=== PATIENT | female | born 1975 | race African-American/Black ===

== ENCOUNTER 2023-03-07 07:56 | Emergency (ER) | payer BC, OTHER ==
[2023-03-07 08:15] VITALS: BMI 30.9
[2023-03-07] MEDS ORDERED: morphine CARPU-JECT 4 MG/1 ML DISP.SYRIN IVPUSH ONE (08:25)
[2023-03-07] MEDS ORDERED: ONDANSETRON 4 MG/2 ML VIAL IVPUSH ONE (08:25)
[2023-03-07] MEDS ORDERED: LACTATED RINGERS SOLUTION 1000 ML INFUS.BAG IV ONE (08:25)
[2023-03-07 08:47] LABS: BASO % 0.9 % (0-2.0); EOS % 0.1 % (0-4.5); HEMATOCRIT 38.5 % (32.4-45.2); HEMOGLOBIN 12.9 GM/dL (10.7-15.3); LYMPH % 9.6 % (8-40); MCHC 33.4 g/dl (32.0-36.0); MEAN CELL VOLUME 77.9 fl (80-96); MEAN PLT VOLUME 8.6 fl (7.5-11.1); MONO % 4.8 % (3.8-10.2); NEUT % 84.6 % (42.8-82.8); PLATELET COUNT 415 10^3/uL (134-434); RBC 4.94 M/mm3 (3.60-5.2); RDW 13.6 % (11.6-15.6); WHITE BLOOD COUNT 8.8 K/mm3 (4.0-10.0)
[2023-03-07] MEDS ORDERED: morphine SULFATE 4 MG/ML VIAL ONE (08:50)
[2023-03-07] MEDS ORDERED: ONDANSETRON 4 MG/2 ML VIAL ONE (08:51)
[2023-03-07 08:54] LABS: EPI CELLS 2 /uL (0-25.1); HYALINE CASTS 0 /uL (0-3.1); PH,URINE 7.5 (5.0-8.0); URINE APPEARANCE CLEAR; URINE BACTERIA 12 /uL (0-1359); URINE BILIRUBIN NEGATIVE (NEGATIVE); URINE COLOR YELLOW; URINE GLUCOSE (UA) NEGATIVE (NEGATIVE); URINE KETONE NEGATIVE (NEGATIVE); URINE LEUK ESTERASE NEGATIVE (NEGATIVE); URINE NITRITE NEGATIVE (NEGATIVE); URINE PROTEIN NEGATIVE (NEGATIVE); URINE RBC 18 /uL (0-23.9); URINE UROBILINOGEN 0.2 mg/dL (0.2-1.0); URINE WBC 1 /uL (0-25.8)
[2023-03-07 08:56] LABS: CHLORIDE 106 mmol/L (98-107); SODIUM 138 mmol/L (136-145)
[2023-03-07 08:59] LABS: ALBUMIN 4.4 g/dl (3.4-5.0); ANION GAP 9 MMOL/L (8-16); BLOOD UREA NITROGEN 6.6 mg/dL (7-18); CO2 24 mmol/L (21-32); GLUCOSE,RANDOM 117 mg/dL (74-106); LIPASE 88 U/L (73-393)
[2023-03-07 09:02] LABS: CREATININE 0.8 mg/dL (0.55-1.3); SGOT/AST 19 U/L (15-37)
[2023-03-07 09:03] LABS: BILIRUBIN,TOTAL 0.7 mg/dL (0.2-1)
[2023-03-07 09:04] LABS: ALK PHOS 55 U/L (45-117); TOT PROT 8.4 g/dl (6.4-8.2)
[2023-03-07 09:11] LABS: SGPT/ALT 42 U/L (13-61)
[2023-03-07] MEDS ORDERED: KETOROLAC TROMETHAMINE 15 MG/ML VIAL IVPUSH ONE (09:27)
[2023-03-07] MEDS ORDERED: KETOROLAC TROMETHAMINE 15 MG/ML VIAL ONE (10:10)
[2023-03-07] MEDS ORDERED: HYDROmorphone HCl 2 MG/ML VIAL IVPUSH ONE (10:54)
[2023-03-07] MEDS ORDERED: HYDROmorphone HCl 2 MG/ML VIAL ONE (10:57)
[2023-03-07] MEDS ORDERED: LIDOCAINE 5% TOPICAL PATCH TP ONE (11:26)
[2023-03-07] MEDS ORDERED: LIDOCAINE 5% TOPICAL PATCH ONE (11:29)
[2023-03-07] MEDS ORDERED: diazePAM 5 MG TABLET PO ONE (13:17)
[2023-03-07] MEDS ORDERED: diazePAM 5 MG TABLET ONE (13:29)
[2023-03-07 18:14] VITALS: BP 124/78; PULSE 85; RESP 20; TEMP 98.6
[2023-03-07] MEDS ORDERED: LIDOCAINE PATCH REMOVAL MC ONE (22:00)
== END 2023-03-07 17:17 | disposition home or self-care (01) ==
LOC: JER 07:56
PROC: 3E033GC Introduction of Other Therapeutic Substance into Peripheral Vein, Percutaneous Approach (ICD-10-PCS; principal; 2023-03-07)
PROC: 3E0333Z Introduction of Anti-inflammatory into Peripheral Vein, Percutaneous Approach (ICD-10-PCS; 2023-03-07)
PROC: 3E033GC Introduction of Other Therapeutic Substance into Peripheral Vein, Percutaneous Approach (ICD-10-PCS; 2023-03-07)
PROC: 3E033GC Introduction of Other Therapeutic Substance into Peripheral Vein, Percutaneous Approach (ICD-10-PCS; 2023-03-07)
DX: R10.9 Unspecified abdominal pain (principal); D25.9 Leiomyoma of uterus, unspecified; Z20.822 Contact with and (suspected) exposure to COVID-19
CPT/HCPCS: 0241U-QW; 36415; 71046-TC-FY; 71275-TC; 74174-TC; 76856-TC; 80053; 81003; 82550; 82553; 83605; 83690; 84702; 84703; 85025; 86850; 86900; 86901; 87086; 93005; 93010; 99285-25; Q9967